=== PATIENT | male | born 1970 | race Caucasian/White ===

== ENCOUNTER 2016-07-11 09:40 | Emergency (ER) | payer SELFPAY ==
[~2016-07-11 09:40] MED LIST: IBUPROFEN200 MG PO; LOPRESSOR DPS12.5 MG PO; NITROSTAT0.4 MG SL; SIMVASTATIN20 MG PO; [UNRECOGNIZED DRUG - OTHER] PO
--- NOTE | 2016-08-10 17:09 | ER ---
ADMIT: 07/11/2016 RM/LOC: ER [facility] MR#: [id number] [id number] [place], [place] [address] MENDEL JON [address] [facility] [address] [place] [address] Emergency Room Report SEX: M AGE: 45 : 1970 DATE: 07/11/2016 CHIEF COMPLAINT: Cough, runny nose. HISTORY OF PRESENT ILLNESS: This is a 45-year-old white male who presents to the ED complaining of cough and increased nasal drainage. The patient states this began about 3 days ago when he awoke with a sore throat, nasal drainage, and a cough. The patient denies any sick contacts or history of seasonal allergies. He does admit to some itchiness in his eyes that was relieved by 1 time dose of an qqma-lcf-ppkbdqg antihistamine. The patient is a smoker, admits to half-pack a day habit for a number of years. The patient has a history of coronary artery disease status post stent placement in 2011 and a repeat cardiac cath in 2014. The patient denies any chest pain with exertion rest at this time. The patient states he does have some productive yellow drainage with his cough. Otherwise states he is healthy denying any headaches, muscle aches, nausea, vomiting, change in stool. COURSE IN THE EMERGENCY ROOM: The patient was seen and examined. My impression was this was a new exacerbation of some seasonal allergies causing allergic rhinitis. He was encouraged to go with lvnx-hnp-wyaunbf antihistamines, recommended Claritin or Zyrtec qrmo-ufk-yaxuibq as directed. He was encouraged to use humidifier at home to reduce his instances of nose bleed and dryness. He was offered dexamethasone shot in the ER prior to dismissal today, which he accepted. He was encouraged to follow up with [facility] as needed with any increase in sputum production, fevers, or other concerning symptoms. The patient agreed with plan and was discharged. NAZIA Tai / Sid Carias MD / jigar JOB #: [id number] CC: Sid Carias MD, Attending Physician Victoriano House MD, Family Physician
== END 2016-07-11 10:38 | disposition home or self-care (01) ==
LOC: ER 09:40
DX: J30.9 Allergic rhinitis, unspecified (principal)

== ENCOUNTER 2016-07-29 12:26 | Emergency (ER) | payer SELFPAY ==
--- NOTE | 2016-08-01 13:43 | ER ---
ADMIT: 07/29/2016 RM/LOC: ER [facility] MR#: [id number] 26[address] [facility] [address] [place], [place] [address] MENDEL JON [address] [facility] [address] [place] [address] Emergency Room Report SEX: M AGE: 46 : 1970 DATE: 07/29/2016 The patient presents to the emergency room with left ankle pain. He says he was at work yesterday and started having some burning sensation in his left foot. The area does not have any erythema, is not swollen. He has good pulse. No trauma. PHYSICAL EXAMINATION: VITAL SIGNS: 151/82, with a heart rate of 76, respirations 18, temp is 98.7, and O2 sats 100%. I did do an examination and he does have tenderness in his ankle, so I went ahead and fearing that he may have a development of a DVT, I ordered a color Doppler venous ultrasound which came back negative for DVT. The patient was given Ultram #10 for pain control as he says he has been taking ibuprofen and not helping him with the pain. CLINICAL IMPRESSION: Left leg pain. No deep venous thrombosis. Advised to follow up with primary provider and/or return if he has increased shortness of breath, pain, and swelling. He needs to check his shoes, fitting of them, and wear comfortable shoes. He was given Dr. Anne House [facility] Call for evaluation. NAZIA Patel / Lalo Forte MD / jigar JOB #: [id number] CC: Lalo Forte MD, Attending Physician Collins House MD, Family Physician . [facility]
== END 2016-07-29 14:25 | disposition home or self-care (01) ==
LOC: ER 12:26
DX: M25.572 Pain in left ankle and joints of left foot (principal); F17.210 Nicotine dependence, cigarettes, uncomplicated

== ENCOUNTER 2016-08-04 08:31 | Inpatient (IN) | payer SELFPAY ==
[~2016-08-04] VITALS: Ht 193 cm; Wt 124.9 kg
--- NOTE | 2016-08-09 16:09 | ER ---
ADMIT: 08/04/2016 RM/LOC: 507 [facility] MR#: [id number] [address] [facility] [address] [place], [place] [address] MENDEL JON [address] [facility] [address] [place] [address] Emergency Room Report SEX: M AGE: 46 : 1970 DATE: 08/04/2016 ADDENDUM: A 46-year-old white male, coming in with abdominal pain, seem to be more right upper quadrant. He also has nausea, vomiting, he has had diarrhea as well. At this time, CBC, chemistry are negative. His ultrasound was negative. His CT, however, shows a small bowel obstruction. I do not believe that he has been operated on for anything except right groin abscess. He does have coronary artery disease, so he has single-vessel stent. He has an IV, we have given him pain medications. We will also get an EKG on him as well. I spoke with Dr. Schwartz, they will need to admit. CONDITION ON DISCHARGE: Fair. Enoch Parnell MD/ jigar JOB #: [id number] CC: Salty Schwartz MD, Attending Physician Salty Schwartz MD, Family Physician
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
--- NOTE | 2016-08-17 10:23 | CO ---
ADMIT: 08/04/2016 RM/LOC: 507 [facility] MR#: [id number] 2620 [facility] [address] [place], [place] [address] MENDEL JON [address] [facility] [address] [place] [address] Consultation Report SEX: M AGE: 46 : 1970 Corrected: 08/06/2016 0737 njv DATE OF CONSULTATION: 08/04/2016 ATTENDING PHYSICIAN: Salty Schwartz CONSULTING PHYSICIAN: Milo Orozco MD HISTORY OF PRESENT ILLNESS: The patient is a 46-year-old male who presented to the emergency room with complaints of nausea, vomiting, and watery diarrhea for the last three days. He states over the last couple years, this has happened multiple times. It is kind of diffuse abdominal crampy discomfort, nausea, vomiting. I do not believe he has had any type of medical workup for his diarrhea till date that I am aware of. PAST SURGICAL HISTORY: History of a cardiac stent in the past. He has had some type of surgery on his left wrist for some type of foreign body. PAST MEDICAL HISTORY: Otherwise unremarkable. MEDICATIONS: He takes no scheduled medications at home other than p.r.n. ibuprofen. SOCIAL HISTORY: He smokes about a half a pack of cigarettes a day. He is a nondrinker. FAMILY HISTORY: Noncontributory. REVIEW OF SYSTEMS: No headaches. No chest pain. He has had nausea, vomiting, abdominal discomfort, and diarrhea per HPI. No extremity complaints. No hematologic, neurologic, or psychiatric issues. PHYSICAL EXAMINATION: VITAL SIGNS: He is afebrile. Vitals stable. HEART: Regular. LUNGS: Clear. ABDOMEN: Soft, nondistended, really nontender to palpation throughout. EXTREMITIES: No peripheral edema. NEUROLOGIC: No focal neurologic deficits. LABORATORY DATA: Laboratory workup revealed a normal white blood cell count. He had a CT scan of the abdomen and pelvis which showed some generalized mild small bowel dilatation. No obvious transition point within the small bowel. No large bowel dilatation. ASSESSMENT AND PLAN: The patient is a 46-year-old, likely has a presentation ADMIT: 08/04/2016 RM/LOC: 507 [facility] MR#: [id number] [address] [address] MENDEL JON [address] [place] [address] Consultation Report SEX: M AGE: 46 : 1970 of gastroenteritis, an infectious etiology. He will need medical workup with stool cultures and studies. May ultimately need a colonoscopy with random biopsies. If he struggles with resumption of bowel function, he will likely need an orally contrasted study, CT scan or some type of small bowel follow- through as again I doubt that he has a mechanical small bowel obstruction based on his history and radiographic workup, it is mentioned that the proximal small bowel loops are nondilated and then there is some mildly dilated more distal loops. We will have Dr. Schwartz proceed with his workup with diarrhea with stool cultures and studies. We will follow along and ultimately see how he clinically performs. Milo Orozco MD/ jigar JOB #: [id number] CC: Salty Schwartz, Attending Physician Salty Schwartz, Family Physician Corrected: 08/06/2016 0737 te
--- NOTE | 2016-09-19 07:54 | DS ---
ADMIT: 08/04/2016 RM/LOC: 507 [facility] MR#: [id number] [address] [facility] [address] [place], [place] [address] MENDEL JON [address] [facility] [address] [place] [address] General Discharge Summary SEX: M AGE: 46 : 1970 ADMISSION DATE: 08/04/2016 DISCHARGE DATE: 08/06/2016 PRIMARY DIAGNOSES: 1. Partial small bowel obstruction. 2. Nausea with vomiting. 3. Diarrhea. 4. Heartburn. 5. Hypokalemia. CONSULTATION DURING THIS HOSPITALIZATION: General Surgery with Dr. Milo Orozco. HISTORY OF PRESENT ILLNESS: The patient is a 46-year-old white male, who presented to the emergency room with complaint of increasing abdominal pain. He had a 2 to 3 day history of upper abdominal pain which had gradually worsened. He also began to have some nausea, vomiting, and diarrhea which had persisted, and he was not able to control them at home. He denied any fevers or chills. No blood in his stool or in his emesis. No recent travel history and no recent antibiotic use. He denies eating any new or questionable foods. He initially thought he was having some indigestion, but as symptoms progressively worsened, he began to get a little worried. Evaluation in the emergency room was normal except for a CT scan of the abdomen that showed a developing small bowel obstruction. A gallbladder ultrasound was done as well and this was completely normal. He was admitted for his symptoms of abdominal pain, nausea, vomiting, diarrhea, and findings of a partial small bowel obstruction on the CT scan. LABORATORY AND X-RAY: Initial labs done through the emergency room included a gallbladder ultrasound that showed a normal-appearing gallbladder without cholelithiasis or evidence of acute cholecystitis. Admission CBC showed normal white count of 7.1, hemoglobin 15.2, platelet count 238. Sodium 141, potassium 3.4, BUN 7, creatinine 0.9, glucose 89, total bilirubin 0.7, alkaline phosphatase 62, AST 10, ALT 15, and lipase 101. CT scan of the abdomen and pelvis showed findings suggestive of a developing small bowel obstruction. There is mild gastric distention and a small amount of free pelvic fluid. The appendix was normal. Additional pertinent labs included an abdominal flat plate done on 08/05/2016, which showed a nonobstructed bowel gas pattern and a repeat x-ray of the abdomen done on 08/06/2016, which showed a negative bowel gas pattern. C difficile testing was negative. Giardia antigen was negative. Cryptosporidium antigen was negative. H. pylori testing was nonreactive. Prior to discharge on 08/06/2016; sodium was 144, potassium 3.8, BUN 6, creatinine 0.7, glucose 91, alkaline phosphatase 50, AST 14, ALT 15, total bilirubin 0.5. Amylase was normal on 08/05 with a level of 24, and his lipase was normal at 106. Prior to discharge, white blood cell count was normal at 6.9, hemoglobin 14.3, and platelet count 279. HOSPITAL COURSE: The patient was admitted on 08/04/2016 as a [facility] patient and was kept n.p.o. IV fluids were ordered and IV Zofran along with a ADMIT: 08/04/2016 RM/LOC: 507 [facility] MR#: [id number] [address] [address] [facility] [place] [address] General Discharge Summary SEX: M AGE: 46 : 1970 morphine RISK MANAGEMENT DIRECTOR were ordered for symptomatic control of pain, nausea, and vomiting. General Surgery was consulted because of the partial small bowel obstruction. No surgical plans were made, but he was kept n.p.o. and given IV fluids. Because of diarrhea and abdominal pain; stool cultures, O and P, stool tests, C difficile stool test, and H. pylori test were done. All of these tests were negative. IV Protonix was initiated for stomach, acid, and heartburn. Symptoms did improve considerably with supportive care and IV fluids. By 08/05, he was feeling much better. No longer having any nausea, vomiting, pain, fevers, or chills. Still having some mild diarrhea. Potassium was a little low and therefore was replaced with IV fluids. Diet was advanced to a clear liquid diet. The patient did well in advance diet throughout the day on 08/05. By 08/06/2016, the patient was feeling well without any further nausea, vomiting, or diarrhea. No fevers or chills noted. Stool tests had all been negative. The patient was therefore set up to be discharged to home in stable condition on 08/06/2016. DISCHARGE INSTRUCTIONS: The patient was discharged to home on 08/06/2016 with plans to be followed up in the [facility] in 7 to 10 days as he does not have a regular provider. Medications to be continued at home include over the counter medications for fevers, chills, nausea, or vomiting. He was not on any prescription medications at the time of discharge. He was to remain on a regular diet as tolerated. Salty Schwartz MD/ jigar JOB #: [id number] CC: Salty Schwartz MD, Attending Physician Salty Schwartz MD, Family Physician
== END 2016-08-06 10:20 | disposition home or self-care (01) | DRG 390 ==
LOC: ER 08:31 → 5MS 11:10
PROVIDERS: ADMIT Family Medicine
DX: K56.60 Unspecified intestinal obstruction (principal); I10 Essential (primary) hypertension; R19.7 Diarrhea, unspecified; I25.10 Atherosclerotic heart disease of native coronary artery without angina pectoris; G47.30 Sleep apnea, unspecified; E78.00 Pure hypercholesterolemia, unspecified; E87.6 Hypokalemia; R12 Heartburn; K21.9 Gastro-esophageal reflux disease without esophagitis; F31.9 Bipolar disorder, unspecified; E66.9 Obesity, unspecified; F17.210 Nicotine dependence, cigarettes, uncomplicated; F12.90 Cannabis use, unspecified, uncomplicated; J44.9 Chronic obstructive pulmonary disease, unspecified; F41.9 Anxiety disorder, unspecified; Z95.5 Presence of coronary angioplasty implant and graft; I25.2 Old myocardial infarction; Z82.49 Family history of ischemic heart disease and other diseases of the circulatory system; Z68.32 Body mass index [BMI] 32.0-32.9, adult